=== PATIENT | female | born 1995 | race Caucasian/White ===

== ENCOUNTER 2024-09-17 13:06 | Emergency (ER) | payer OTHER, SELFPAY ==
--- NOTE | 2024-09-17 13:08 | ED.EAR ---
HPI - Ear Problem General Chief complaint: Ear Stated complaint: Bilateral Ear Pain Time Seen by Provider: 09/17/24 13:08 Source: patient Mode of arrival: ambulatory Limitations: no limitations History of Present Illness HPI Narrative: Patient is a 28-year-old female presents with bilateral ear pain, pressure and popping for a month. Reports left feels more plugged on the right. Denies any congestion, cough, sore throat, fever, chills some nausea, vomiting, diarrhea. MD Complaint: ear pain Related Data Home Medications ?Medication ?Instructions ?Recorded ?Confirmed ?Last Taken ?Type methylphenidate HCl 20 mg mg PO 09/17/24 Unknown History tablet,extended release Allergies Allergy/AdvReac Type Severity Reaction Status Date / Time No Known Allergies Allergy Verified 09/17/24 13:13 Review of Systems Review of Systems: All systems reviewed & are unremarkable except as noted in HPI and below Constitutional: Constitutional: Denies body ache(s), Denies chills, Denies fever(s), Denies headache(s) and Denies malaise Eyes: Eyes: Denies blurry vision, Denies eye discharge and Denies irritation ENT: Reports otalgia, Denies headache(s), Denies nasal congestion, Denies nasal discharge and Denies sore throat Cardiovascular: Cardiovascular: Denies chest pain, Denies edema, Denies palpitations and Denies dyspnea on exertion Respiratory: Respiratory: Denies cough and Denies dyspnea on exertion Gastrointestinal: Gastrointestinal: Denies abdominal pain, Denies diarrhea, Denies nausea and Denies vomiting Musculoskeletal: Musculoskeletal: Denies back pain, Denies arthralgias and Denies muscle weakness Integumentary/Breasts: Skin/Breast: Denies pruritus and Denies rash Neurologic: Denies headache(s) Psychiatric: Psychiatric: Reports no additional psychiatric complaints Endocrine: Endocrine: Denies palpitations PMFSH Comments At time of signature, agree with nursing past medical, surgical, social and family history. There is no relevant family history pertinent to the presenting complaint? Exam Const: General: cooperative, healthy appearing, no acute distress and well nourished Nutritional Appearance: well nourished Orientation/consciousness: patient oriented x3 Limitations: no limitations HENMT: Head: normal to inspection, normocephalic and atraumatic Ears: hearing grossly normal bilaterally, EAC's normal, no periauricular adenopathy and TM abnormal wth effusion serous bilateral Face/Nose/Sinus: Normal external nose present, Normal nares present, Normal nasal mucous membranes and turbinates present, No nasal discharge present, normal facial exam and sinuses nontender Face and sinus: normal facial exam and sinuses nontender Mouth: Yes Normal oral and palatal mucosa present, Yes lip normal, Yes tongue normal and Yes moist mucous membranes Throat: posterior oropharynx normal, tonsils normal and uvula midline Eyes: General: appearance normal, both eyes and all related structures Alignment and Position: alignment normal and position normal Eyelids: eyelids normal Pupils: Equal, round and reactive pupils present EOM: EOMs intact bilaterally Neck: Neck: normal visual inspection, full ROM, no lymphadenopathy and supple Chest: Chest palpation & inspection: normal inspection of the chest Resp: Effort & Inspection: normal respiratory effort and able to speak in complete sentences Auscultation: clear to auscultation bilaterally, no crackles, no rales, no rhonchi and no wheezes Cardio: Rate: regular rate Rhythm: regular rhythm Heart sounds: S1 normal heart sound present and S2 normal heart sound present Skin: General skin exam: normal color and no rashes or lesions noted Neuro: General: patient oriented x3 and moves all extremities Cranial nerves: Yes Equal, round and reactive pupils present Cognition (Neuro): normal cognition Speech: normal speech Gait exam (Neuro): Normal gait present Extrem: General: normal to inspection and full ROM Psych: Appearance: grossly normal and well kempt Mental Status: mental status grossly normal Speech and movement: Normal speech and movement present Course Course Emergency Course: Patient is aware of diagnosis, understands and agrees to treatment plan.? Anticipatory guidance given.? Patient agrees to follow-up as directed and is aware of reasons to seek care at the emergency department.? Portions of this record may have been created with voice recognition software? Level of Care: Express Care Visit Vital Signs Vital signs: Reviewed Medical Decision Making MDM Narrative Medical decision making narrative: Pt well hydrated appearing, in no respiratory distress, hemodynamically stable. Recommend supportive care. The patient is stable at time of discharge the clinical impression was discussed and the patient was given the opportunity to ask questions, which were addressed as completely as possible given the information available at present. Anticipatory guidance and return to care precautions were discussed and the importance of primary care follow-up was stressed and encouraged. The patient voiced understanding of the plan, indications to return, and the need for follow-up. Exam findings show no acute concerns or changes Patient is appropriate for outpatient treatment and follow-up. Differential diagnosis considered: Montoya virus, strep pharyngitis, allergic rhinitis, upper respiratory tract infection, sinusitis, rhinosinusitis, nasopharyngitis. viral pharyngitis, otitis media, otitis externa, otitis effusion, foreign body, cerumen impaction, viral syndrome, and influenza.? Discharge Plan Discharge Clinical Impression: Acute effusion of both middle ears Patient Disposition: Home, Self-Care Condition: Stable Instructions: Fluid In The Ear (Serous Otitis Media) (ED) Additional Instructions: Recommend antihistamine such as Benadryl at night time and Zyrtec or Verónica during the day until symptoms improve Flonase nasal spray, 1 spray in each nostril once daily until symptoms improve Also, recommend symptomatic treatment includes: rest, fluids, and increase humidity of the air at home. Recommend Acetaminophen as directed on the bottle to reduce fever, pain Please schedule a follow-up visit with your personal physician for further evaluation and treatment within 3-5days. If your symptoms persist, change or worsen significantly before you can contact your personal physician then please, without delay, go to the emergency department for further evaluation. Patient Language: Ukrainian Prescriptions: New methylprednisolone [Medrol (Teodoro)] 4 mg tablets,dose pack See Rx Instructions .ROUTE .COMPLEX Qty: 21 0RF Rx Instructions: orally per package directions fluticasone propionate [Flonase Allergy Relief] 50 mcg/actuation spray,suspension 1 spray intranasal DAILY Qty: 16 0RF Rx Instructions: administer into each nostril No Action methylphenidate HCl 20 mg tablet extended release PO Follow-up/Referrals: [place], [Primary Care Provider] - 3 Days Time of Disposition: 13:35
[2024-09-17 13:15] VITALS: BP 125/73; PULSE 85; RESP 18; TEMP 36.8; O2SAT 100
--- OUTSIDE RECORDS SUMMARY | 2024-09-17 14:28 | XMS_ITS | Referral Summary ---
Author Organization [facility] Address [address] [place] [address] Care Team Providers Care Processing Rep Name Role Phone [facility] Primary Care Provider [phone] Allergies No known active allergies Medications Tirosint 100 mcg capsule 2 Active phentermine 15 mg capsule daily Active ibuprofen (ADVIL,MOTRIN) 800 mg tabletIndications:A nti-inflammatory,Fe denis,Pain Take 1 tablet (800 mg total) by mouth every 8 (eight) hours as needed for pain 21 tablet 2 Active ondansetron ODT (ZOFRAN-ODT) 4 mg disintegrating tablet Take 1 tablet (4 mg total) by mouth every 8 (eight) hours as needed for nausea or vomiting 20 tablet 2 Active acetaminophen (TYLENOL) 325 mg tablet Take 1 tablet (325 mg total) by mouth 4 Active multivit with min-folic acid 0.4 mg tablet Take by mouth 4 Active Active Problems Problem Noted Date Diagnosed Date Pyelonephritis 04/17/2022 Social History Tobacco Use Types Packs/Day Years Used Date Smoking Tobacco: Unknown Tobacco Cessation:Counseling Given: Not Answered Personal Safety Answer Date Recorded Getting School Help Needed Not on file 11/23 Comments No Sex and Gender Information Value Date Recorded Sex Assigned at Not on file 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 Gender Identity Not on file Sexual Orientation Not on file Last Filed Vital Signs Vital Sign Reading Time Taken Comments Blood Pressure 92/58 11/07/2022 5:35 PM CDT Pulse 68 11/07/2022 5:35 PM CDT Temperature 37.1 C (98.8 F) 11/07/2022 3:50 PM CDT Respiratory Rate 14 11/07/2022 5:35 PM CDT Oxygen Saturation 99% 11/07/2022 5:35 PM CDT Inhaled Oxygen Concentration - - Weight 60.5 kg (133 lb 6.1 oz) 11/07/2022 3:50 P M CDT Height 152.4 cm (5') 11/07/2022 3:50 PM CDT Body Mass Index 26.05 11/07/2022 3:50 PM CDT Plan of Treatment Not on file Insurance [facility] CLAIMS [facility] Care Teams Processing Rep Relationship Specialty Start Date End Date [facility] [address] [place] [address] PCP - General 04/17/22
--- OUTSIDE RECORDS SUMMARY | 2024-09-17 14:28 | XMS_ITS | Clinical Summary ---
Author Organization [facility] Address [facility] [place] [address] Care Team Providers Care Insurance Billing Specialist Name Role Phone None, Provider MD Primary Care Provider Unavaila ble Allergies No known active allergies Medications TIROSINT 88 MCG Cap 06/22/2023 Active buPROPion SR (WELLBUTRIN SR) 100 MG 12 hr tablet Take 1 tablet (100 mg total) by mouth 2 (two) times daily. 04/04/2024 Active dextromethorpha n-guaiFENesin ER (MUCINEX DM) 30-600 MG TABLET SR 12 HR 12 hr tablet Take 1 tablet by mouth every 12 (twelve) hours as needed. 28 tablet 04/10/2024 Active methylPREDNISol one, AVI, (MEDROL DOSEPAK) 4 MG tablet Take 1 tablet (4 mg total) by mouth daily. 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 Gender Identity Not on file Sexual Orientation Not on file Last Filed Vital Signs Vital Sign Reading Time Taken Comments Blood Pressure 122/76 04/25/2024 9:30 PM CDT Pulse 76 04/25/2024 8:12 PM CDT Temperature 36.9 C (98.5 F) 04/25/2024 6:03 PM CDT Respiratory Rate 16 04/25/2024 8:12 PM CDT Oxygen Saturation 100% 04/25/2024 9:30 PM CDT Inhaled Oxygen Concentration - - Weight 58.1 kg (128 lb) 04/25/2024 6:03 PM CDT Height 152.4 cm (5') 04/25/2024 6:03 PM CDT Body Mass Index 25 04/25/2024 6:03 PM CDT Plan of Treatment Health Maintenance Due Date Last Done Comments Cervical Cancer Screening Pa p Smear (Age 21 to 29) Every 3 Years 1994 Cervical Cancer Screening 1994 Annual Physical 1997 Hepatitis C 2012 DTaP, Tdap and Td Vaccines ( 1 - Tdap) 2013 Hepatitis B Vaccines (1 of 3 - 19+ 3-dose series) 2013 COVID-19 Vaccine (2 - 2023-2 5 season) 2024 12/06/2020 Influenza Adult (#1) 2024 06/14/2020 HPV Vaccines Aged Out No longer eligi ble based on patient's age to complete this topic Meningococcal B Vaccine Aged Out No l onger eligible based on patient's age to complete this topic Meningococcal Vaccine Aged Out No rena bertha eligible based on patient's age to complete this topic Pneumococcal Vaccine: Pediat rics (0 to 5 Years) and At-Risk Patients (6 to 64 Years) Aged Out No longer eligi ble based on patient's age to complete this topic RSV Immunizations Under 20 Months Aged Out No longer eligible based on patient's age to complete this topic Insurance Care Teams Insurance Billing Specialist Relationship Specialty Start Date End Date None, Provider, PCP - General UNKNOWN PHYSICIAN SPECIALTY 06/14/23
--- OUTSIDE RECORDS SUMMARY | 2024-09-17 14:28 | XMS_ITS | Clinical Summary ---
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 Gender Identity Not on file Sexual Orientation Not on file Obstetrics History Last Filed Vital Signs Vital Sign Reading [...] 11/07/2022 3:50 PM CDT Plan of Treatment Health Maintenance Due Date Last Done Comments Cervical Cancer Screening 1994 Depression Screening 1994 Hepatitis C Screening 1994 Varicella Vaccines (1 of 2 - 13+ 2-dose series) 11/29/2007 Regular Well Visit/Exam 18-64 2012 Covid-19 Vaccine (2 - 2023-2 5 season) 2024 12/06/2020 Influenza Vaccine (#1) 2024 0, 05/25/2016 DTaP/Tdap/Td Vaccine (2 - Td or Tdap) 01/18/2026 01/19/2016 Hepatitis B Screening Completed 01/27/2016 HPV Vaccines Aged Out No longer eligi ble based on patient's age to complete this topic Pneumococcal vaccine <65 Aged Out No longer eligible based on patient's age to complete this topic Insurance [facility] CLAIMS [facility] Care Teams Restaurant Maintenance Technician Relationship Specialty Start Date End Date [facility] [address] [place] [address] PCP - General 04/17/22
--- OUTSIDE RECORDS SUMMARY | 2024-09-17 14:35 | XMS_ITS | Continuity of Care Document ---
Author Name [facility] Organization [facility] Care Team Providers Care Data Warehouse Consultant Name Role Phone [facility] Unavailable Unavailable Problems Combined list of problems from Department of Defense and Veterans Affairs facilities. It does not include entries that were removed or entered in error. Problem Status Onset Date Problem Type Date of Resolution Comments Source Hypothyroidism Active 03/08/2022 Condition 0055 [facility] Encounter for other contraceptive management Active Condition [facility] Hashimotos disease Active Condition 005 5[facility] Medications Combined list of outpatient medications from Department of Defense and Veterans Affairs facilities.Medications provided include 1) outpatient medications from the last 15 months, and 2) patient-reported medications. Medication Details Route Status Patient Instructions Prescription Expires Prescription Number Last Dispense Date Ordering Provider Order Date Order Qty Source acetaminoph en 325 mg oral tablet 1 tab(s), Oral, every 4 hr, PRN pain or fever, # 100 tab(s), 0 total refill(s ), Maintena donnye Oral (given by mouth) Ordered 2023 100.0 0055C-[address] [place] [address] AMOXICILLIN (AMOXICILLI N), 875MG, TABLET, ORAL, [facility], 100 ea. BOTTLE Active [id number] 2023 20 Pharmac y Data Transac tion Service Facilit y cholecalcif jose angel 1250 mcg (50,000 intl units) oral capsule 1 cap(s), Oral, every week, # 12 cap(s), 0 total refill(s ), Maintena nce, Pharmacy : [facility] Oral (given by mouth) Ordered 2023 12.0 0055C-[address] [place] [address] FLUARIX QUAD [id number] (influenza virus vaccine quadrival 9850-1264(6 mos and up)/PF), 60MCG/.5ML, FLUARIX QUAD 1 (influen za virus vaccine quadriva l 2019- 1(6 mos and up)/PF), 60MCG/.5 ML, Start Date: 06/22/20 Stop Date: 08/01/23 Status: Ros guardado Repeat number: 1 Discont inued 08/01/20232023 No Facilit y Access ibuprofen 200 mg oral tablet 1 tab(s), Oral, every 6 hr, 0 total refill(s ), Maintena nce Oral (given by mouth) Ordered 2023 0055C-3 [facility] Enrrique levothyroxi ne 88 mcg oral capsule 1 cap(s), Oral, Daily, TAKE ONE TABLET BY MOUTH EVERY DAY, # 30 cap(s), 0 total refill(s ), Maintena nce, [place] prescrip tion until patient gets [facility] refill, Pharmacy : [facility] Oral (given by mouth) Discont inued 08/01/20232023 30.0 0055C-3 [facility] Enrrique levothyroxi ne [Tirosint] 88 mcg capsule See dose instruct ions in comments , # 90 EA, 1 total refill(s ), Acute Complet ed 06/29/2023 3 2022 90.0 Ambulat ory Pharmac y multivitami n adult, oral tablet Oral, Daily, 0 total refill(s ), Maintena nce Oral (given by mouth) Ordered 2023 0055C-3 [facility] Enrrique norethindro ne 0.35 mg oral tablet norethin drone 0.35 mg oral tablet Start Date: 10/15/19 Stop Date: 08/01/23 Status: Ros guardado Repeat number: 1 Discont inued 08/01/20232023 No Facilit y Access TIROSINT (levothyrox ine sodium), 88 MCG, CAPSULE, ORAL, [employer], 30 ea. BLIST PACK Active [id number] 2023 90 Pharmac y Data Transac tion Service Facilit y Tirosint 88 mcg oral capsule 1 cap(s), Oral, Daily, TAKE ONE CAPSULE DAILY, # 90 cap(s), 2 total refill(s ), Maintena nce, Pharmacy : [facility] Oral (given by mouth) Ordered 2023 90.0 0055C-3 [facility] Enrrique Tirosint 88 mcg oral capsule 1 cap(s), Oral, Daily, TAKE ONE CAPSULE DAILY, # 90 cap(s), 1 total refill(s ), [facility], Pharmacy : [facility] Oral (given by mouth) Discont inued 12/22/20232023 90.0 0055C-3 [facility] Enrrique Tirosint 88 mcg oral capsule 1 cap(s), Oral, Daily, TAKE ONE CAPSULE DAILY, # 90 cap(s), 1 total refill(s ), [facility], Pharmacy : [facility] Oral (given by mouth) Discont inued 06/22/20232022 90.0 0055C-3 [facility] Enrrique triamcinolo ne 0.025% topical cream triamcin olone 0.025% topical cream Start Date: 08/08/19 Stop Date: 08/01/23 Status: Disconti nuemani Repeat number: 1 Discont inued 08/01/20232023 No Facilit y Access Allergies, Adverse Reactions, Alerts Combined list of allergies from Department of Defense and Veterans Affairs facilities. It does not include entries that were removed or entered in error. Substance Category Reaction Severity Reaction type Status Date Reported Comments Source No Known Allergies Drug allergy (disorder) active 06/29/2016 [facility] Immunizations Combined list of available immunizations from the Department of Defense and Veterans Affairs facilities. Immunization Series Date Given Administered By Site Reaction Lot Number CVX Code Drug Arcgis Developer Status Comments Source tuberculin skin test; purified protein derivative solution, intradermal 1 2020 Unknown, Provider [id number] Sanofi Pasteur (PMC) complet ed tuberculi n skin test; purified protein derivativ e solution, intraderm al DoD COVID-19 vaccine, vector-nr, rS-Ad26, PF, 0.5 mL 2020 ALUL, () Not Given COVID-19 vaccine, vector-nr , rS-Ad26, PF, 0.5 mL [facility] influenza, injectable, quadrivalent- pf 2019 150 GlaxoSmithKli ne complet ed influenza , injectabl e, quadrival ent-pf 06/14/20 Given Ambulat ory Pharmac y influenza, injectable, quadrivalent, preservative free 2019 ALUL, () Not Given influenza , injectabl e, quadrival ent, preservat eleuterio free DoD tuberculin purified protein derivative 2017 zzLef t Arm [id number] sanofi pasteur complet ed Patient Tolerance : Negative Ambulat ory Pharmac y tuberculin skin test; purified protein derivative solution, intradermal 1 2017 Unknown, Provider [id number] Sanofi Pasteur (PMC) complet ed tuberculi n skin test; purified protein derivativ e solution, intraderm al DoD influenza, seasonal, injectable-pf 2015 zzLef t Arm [id number] Seqirus complet ed influenza , seasonal, injectabl e-pf 05/25/16 Given Ambulat ory Pharmac y Influenza, seasonal, injectable, preservative free 1 2015 Unknown, Provider [id number] Seqirus (SEQ) complet ed Influenza , seasonal, injectabl e, preservat eleuterio free DoD hepatitis B adult vaccine 2015 zzRenny Arm [id number] GlaxoSmithKli ne complet ed hepatitis B adult vaccine 01/27/16 Given Ambulat ory Pharmac y measles/mumps /rubella virus vaccine 2015 zzLef t Arm [id number] Merck & Company Inc complet ed measles/m umps/rube lla virus vaccine 01/27/16 Given Ambulat ory Pharmac y measles, mumps and rubella virus vaccine 1 2015 Unknown, Provider [id number] Merck (MSD) complet ed measles, mumps and rubella virus vaccine DoD hepatitis B vaccine, adult dosage 1 2015 Unknown, Provider [id number] [facility] hepatitis B vaccine, adult dosage DoD tetanus, diphtheria, acellular pertu is 2015 zzRenny ht Arm [id number] 115 GlaxoSmithKli ne complet ed tetanus, diphtheri a, acellular pertussis 01/19/16 Given Ambulat ory Pharmac y tuberculin purified protein derivative 2015 zzLef t Arm [id number] sanofi pasteur complet ed Patient Tolerance : Negative Ambulat ory Pharmac y hepatitis A adult vaccine 2015 zzLef t Arm [id number] GlaxoSmithKli ne complet ed hepatitis A adult vaccine 01/19/16 Given Ambulat ory Pharmac y hepatitis A vaccine, adult dosage 2015 Unknown, Provider [id number] [facility] ([facility]) complet ed hepatitis A vaccine, adult dosage DoD tuberculin skin test; purified protein derivative solution, intradermal 2015 Unknown, Provider [id number] 96 Sanofi Pasteur (PMC) complet ed tuberculi n skin test; purified protein derivativ e solution, intraderm al DoD tetanus toxoid, reduced diphtheria toxoid, and acellular pertu is vaccine, adsorbed 1 2015 Unknown, Provider [id number] [facility] ([facility]) complet ed tetanus toxoid, reduced diphtheri a toxoid, and acellular pertussis vaccine, adsorbed DoD poliovirus vaccine, live, oral 1999 TRANSCR IBED 02 complet ed polioviru s vaccine, live, oral 11/04/99 Given Ambulat ory Pharmac y trivalent poliovirus vaccine, live, oral 1999 Unknown, Provider 02 Transcribed (TRS) complet ed trivalent polioviru s vaccine, live, oral DoD poliovirus vaccine, live, oral 1995 TRANSCR IBED 02 complet ed polioviru s vaccine, live, oral 07/18/95 Given Ambulat ory Pharmac y trivalent poliovirus vaccine, live, oral 1 1995 Unknown, Provider 02 Transcribed (TRS) complet ed trivalent polioviru s vaccine, live, oral DoD poliovirus vaccine, live, oral 1994 TRANSCR IBED 02 complet ed polioviru s vaccine, live, oral 04/03/95 Given Ambulat ory Pharmac y trivalent poliovirus vaccine, live, oral 1 1994 Unknown, Provider 02 Transcribed (TRS) complet ed trivalent polioviru s vaccine, live, oral DoD poliovirus vaccine, live, oral 1994 TRANSCR IBED 02 complet ed polioviru s vaccine, live, oral 01/31/95 Given Ambulat ory Pharmac y trivalent poliovirus vaccine, live, oral 1994 Unknown, Provider 02 Transcribed (TRS) complet ed trivalent polioviru s vaccine, live, oral DoD Results Combined list of recent chemistry, hematology and other laboratory results from Department of Defense and Veterans Affairs, ranging from 15 months to all on record, depending upon the facility. Order Name Results Value Reference Range Date Interpretation Specimen Comments Source Chemistry TSH 1.280 mIU/L 0.270 - 4.200 10/03 N Interpretive Data: Recommend: TPO/Thyroper oxidase Antibody when TSH result is > 4.2 uIU/mL 5600A-U [facility] Chemistry T3 Total 0.88 ng/mL 0.80 - 2.00 10/03 N Interpretive Data: METHODOLOGY: Testing performed by electrochemi luminescent immunoassay (ECLIA). [facility] Chemistry Sodium 141 mmol/L 136 - 145 10/03 N 0055A-[address] [place] [address] Chemistry Protein Total 7.5 g/dL 6.4 - 8.3 10/03 N 0055A-[address] [place] [address] Chemistry Potassium Lvl 3.9 mmol/L 3.5 - 5.1 10/03 N 0055A-[address] [place] [address] Chemistry AGAP 9.00 0.00 - 15.00 10/03 N 0055A-[address] [place] [address] Chemistry Albumin 4.60 g/dL 3.50 - 5.20 10/03 N 0055A-[address] [place] [address] Chemistry ALT 10 U/L 5 - 55 10/03 N 0055A-[address] [place] [address] Chemistry AST 13 U/L 5 - 34 10/03 N 0055A-[address] [place] [address] Chemistry Alk Phos 48 U/L 40 - 150 10/03 N 0055A-[address] [place] [address] Chemistry Calcium 10.0 mg/dL 8.4 - 10.2 10/03 N 0055A-[address] [place] [address] Chemistry Creatinine Level 0.80 mg/dL 0.57 - 1.11 10/03 N 0055A-[address] [place] [address] Chemistry Glucose Lvl 89 mg/dL 74 - 99 10/03 N 0055A-[address] [place] [address] Chemistry Chloride 108 mmol/L 98 - 107 10/03 H 0055A-[address] [place] [address]- Enrrique Chemistry CO2 24 mmol/L 22 - 29 10/03 N [facility] Chemistry Bilirubin Total 0.8 mg/dL 0.2 - 1.2 10/03 N - [facility] Chemistry BUN/Creat Ratio 24 mg/dL 12 - 20 10/03 H - [facility] Chemistry BUN 19 mg/dL 7 - 20 10/03 N - [facility] Chemistry eGFR CKD EPI 103 mL/min /1.73_ m2 10/03 Interpretive Data: Estimated Glomerular Filtration Rate (eGFR) calculated using the 2020 Chronic Kidney Disease-Epid emiology (CKD-EPI) Collaboratio n creatinine equation; units of measure are mL/min/1.73 m2. Results are only valid for adults (>=18 years) whose serum creatinine is in steady state. eGFR calculations are not valid for patients with acute kidney injury and for patients on dialysis. Creatinine-b ased estimates of kidney function may also be inaccurate in patients with reduced creatinine generation due to decreased muscle mass (e.g., malnutrition , severe hypoalbumine anita, sarcopenia, chronic neuromuscula r disease, amputations, severe heart failure or liver disease) and in patients with increased creatinine generation due to increased muscle mass (e.g., muscle builders, anabolic steroids) or increased dietary intake. CKD is diagnosed based on abnormalitie s of kidney structure or function, present for >3 months, with implications for health and disease. CKD is classified and staged based on cause, eGFR and albuminuria (quantified as urine albumin to creatinine ratio). An eGFR >60 mL/min/1.73 m2 in the absence of increased urine albumin excretion or structural abnormalitie s does not CKD. eGFR provides only an estimate of measured GFR within +/- 30% for most patients. As mentioned, nutritional status and muscle mass, among many factors, may lead to inaccuracy in the estimate. Consider ordering the creatinine-c ystatin C panel if better accuracy is needed for clinical decision-william ing. eGFR (mL/min/1.73 m2) CKD stage Interpretati on Normal 60-89 Mild decrease 45-59 Mild to moderate decrease 30-44 Moderate to severe decrease 15-29 Severe decrease <15 Kidney failure - 75[facility] Chemistry Vitamin D 25 OH 13.3 ng/mL 30.0 - 100.0 10/03 L Interpretive Data: Classificati on of Vitamin D Status: Deficient: <20 ng/mL Insufficient : 20-29 ng/mL Sufficient: 30-100 ng/mL Possible Toxicity: >100 ng/mL This assay is for the quantitative determinatio n of total 25 (OH) vitamin D. It is intended as an aid in the determinatio n of vitamin D sufficiency. Results should always be interpreted in conjunction with the patient's medical history, clinical presentation , and other findings. Testing performed by Electrochemi luminescence . 5600A-U [facility] Chemistry T4 Free Direct.LC 1.40 ng/dL 10/03 Result Comment: Performed At: [address] [id number] Oneil Robbins PhD Ph:[phone] [address] [place] [address] Chemistry Hemoglobin A1c 5.0 % 4.0 - 5.6 10/03 N Interpretive Data: Normal: 4.0 - 5.6% Increased Risk: 5.7 - 6.4% Diabetic Range: 6.5% For patients without diabetes, the normal range for the hemoglobin A1c test is between 4% and 5.6%. Hemoglobin A1c levels between 5.7% and 6.4% indicate increased risk of diabetes, and levels of 6.5% or higher indicate diabetes. Because studies have repeatedly shown that pmm-vz-bjrkl ol diabetes results in complication s from the disease, the goal for people with diabetes is a hemoglobin A1c less than 7%. The higher the hemoglobin A1c, the higher the risks of developing complication s related to diabetes. If confirmation is needed, consider recalling the patient and ordering Hemoglobin Electrophore sis. -[address] [place] [address] Chemistry eAvg Glucose 97 mg/dL 10/03 0055A-[address] [place] [address] Hematology MCV 87 fL 80 - 97 10/03 N 5A-[address] [place] [address] Hematology MPV 8.8 fL 7.4 - 10.4 10/03 N 5A-[address] [place] [address] Hematology RBC 4.6 x10^6/ mcL 3.6 - 5.0106 10/03 N -[address] [place] [address] Hematology Platelets 237.0 x10^3/ mcL 150.0 - 450.0103 10/[address] [place] [address] Hematology RDW 12.2 % 11.0 - 14.9 10/[address] [place] [address] WBC 4.6 x10^3/ mcL 4.0 - 11.0103 10/[address] [place] [address] Differentia l? Auto ( 10:09 AM) 10/[address] [place] [address] Hemoglobin 13.7 g/dL 11.0 - 15.0 10/[address] [place] [address] Hematocrit 40 % 34 - 46 10/[address] [place] [address] MCHC 34.2 g/dL 33.0 - 36.5 10/[address] [place] [address] MCH 30 pg 28 - 33 10/[address] [place] [address] Basophil % Auto 0.2 % 0.0 - 2.5 10/[address] [place] [address] Eos Absolute 0.1 x10^3/ mcL 0.0 - 0.7103 10/[address] [place] [address] Eosinophil % Auto 2 % 0 - 5 10/[address] [place] [address] Lymphocyte % Auto 36.3 % 20.0 - 40.0 10/[address] [place] [address] Lymph Absolute 1.7 x10^3/ mcL 1.2 - 4.0103 10/[address] [place] [address] Wilbarger Absolute 0.2 x10^3/ mcL 0.2 - 0.8103 10/[address] [place] [address] Monocyte % Auto 5 % 1 - 12 10/[address] [place] [address] Neutro Absolute 2.6 x10^3/ mcL 2.0 - 7.0103 10/[address] [place] [address] Neutrophil % Auto 56.8 % 46.0 - 77.0 10/[address] [place] [address] Hematology Baso Absolute 0.0 x10^3/ mcL 0.0 - 0.1103 10/[address] [place] [address] Chemistry eAvg Glucose 103 mg/dL 04/[address] [place] [address] Chemistry Hemoglobin A1c 5.2 % 4.0 - 5.6 04/21 N Interpretive Data: Normal: 4.0 - 5.6% Increased Risk: 5.7 - 6.4% Diabetic Range: 6.5% For patients without diabetes, the normal range for the hemoglobin A1c test is between 4% and 5.6%. Hemoglobin A1c levels between 5.7% and 6.4% indicate increased risk of diabetes, and levels of 6.5% or higher indicate diabetes. Because studies have repeatedly shown that cly-ip-hrgql ol diabetes results in complication s from the disease, the goal for people with diabetes is a hemoglobin A1c less than 7%. The higher the hemoglobin A1c, the higher the risks of developing complication s related to diabetes. If confirmation is needed, consider recalling the patient and ordering Hemoglobin Electrophore sis. [address] [place] [address] Chemistry Cholesterol Total 145 mg/dL 04/21 N Interpretive Data: According to the [employer]: AGES 0-19: Desirable: < 170 mg/dL Borderline High: 170-199 mg/dL High Blood Cholesterol: >/= 200 mg/dL ADULTS: Desirable < 200 mg/dL Borderline High: 200-239 mg/dL High Blood Cholesterol: >/= 240 mg/dL [address] [place] [address] Chemistry LDL/HDL 2 04/[address] [place] [address] Chemistry Triglycerid es 32 mg/dL 7 - 149 04/21 N Interpretive Data: AGES 0-9: Desirable: < 75 mg/dL Borderline High: 75-99 mg/dL High: >/= 100 mg/dL AGES 10-19: Desirable: < 90 mg/dL Borderline High: 90-129 mg/dL High: >/= 130 mg/dL ADULTS: Desirable: < 150 mg/dL Borderline High: 150-199 mg/dL High: >/= 240 mg/dL Very High: >/= 500 mg/dL [address] [place] [address] Chemistry HDL Cholesterol 56 mg/dL 40 - 59 04/21 N Interpretive Data: HDL (HIGH DENSITY LIPOPROTEIN) : ADULTS: Low: < 40 mg/dL High: >/= 60 mg/dL AGES 0 -19: Low: < 40 mg/dL Borderline Low: 40 - 45 mg/dL Acceptable: > 45 mg/dL [address] [place] [address] Chemistry LDL 85 mg/dL 100 - 130 04/21 L Interpretive Data: AGES 0-19: Desirable: < 110 mg/dL Borderline High: 110-129 mg/dL High: >/= 130 mg/dL ADULTS: Desirable: <100 mg/dL Near/above optimal: 100-130 mg/dL Borderline High: 131-159 mg/dL High: 160-189 mg/dL Very High: 190 mg/dL [address] [place] [address] Chemistry Chol/HDL 3 mg/dL 04/21-[address] [place] [address] Chemistry AST 16 U/L 5 - 34 04/21 N -[address] [place] [address] Chemistry Bilirubin Total 0.6 mg/dL 0.2 - 1.2 04/21 N -[address] [place] [address] Chemistry ALT 13 U/L 5 - 55 04/21 N -[address] [place] [address] Chemistry BUN 16 mg/dL 7 - 20 04/21 N -[address] [place] [address] Chemistry BUN/Creat Ratio 20 mg/dL 12 - 20 04/21 N -[address] [place] [address] Chemistry Calcium 9.1 mg/dL 8.4 - 10.2 04/21 N -[address] [place] [address] Chemistry Creatinine Level 0.80 mg/dL 0.57 - 1.11 04/21 N -[address] [place] [address] Chemistry Chloride 108 mmol/L 98 - 107 04/21 H -[address] [place] [address] Chemistry CO2 24 mmol/L 22 - 29 04/21 N 5A-[address] [place] [address] Chemistry Glucose Lvl 95 mg/dL 74 - 99 04/21 N - [address] [place] [address] Chemistry AGAP 8.00 0.00 - 15.00 04/21 N 0055A-[address] [place] [address] Chemistry Protein Total 7.0 g/dL 6.4 - 8.3 04/21 N 0055A-[address] [place] [address] Chemistry Potassium Lvl 3.9 mmol/L 3.5 - 5.1 04/21 N 0055A-[address] [place] [address] Chemistry Sodium 140 mmol/L 136 - 145 04/21 N 0055A-[address] [place] [address] Chemistry Albumin 4.30 g/dL 3.50 - 5.20 04/21 N 0055A-[address] [place] [address] Chemistry Alk Phos 46 U/L 40 - 150 04/21 N - [address] [place] [address] Chemistry TSH 0.335 mIU/L 0.270 - 4.200 04/21 N Interpretive Data: Recommend: TPO/Thyroper oxidase Antibody when TSH result is > 4.2 uIU/mL [facility] Chemistry eGFR CKD EPI 103 mL/min /1.73_ m2 04/21 Interpretive Data: Estimated Glomerular Filtration Rate (eGFR) calculated using the 2020 Chronic Kidney Disease-Epid emiology (CKD-EPI) Collaboratio n creatinine equation; units of measure are mL/min/1.73 m2. Results are only valid for adults (>=18 years) whose serum creatinine is in steady state. eGFR calculations are not valid for patients with acute kidney injury and for patients on dialysis. Creatinine-b ased estimates of kidney function may also be inaccurate in patients with reduced creatinine generation due to decreased muscle mass (e.g., malnutrition , severe hypoalbumine anita, sarcopenia, chronic neuromuscula r disease, amputations, severe heart failure or liver disease) and in patients with increased creatinine generation due to increased muscle mass (e.g., muscle builders, anabolic steroids) or increased dietary intake. CKD is diagnosed based on abnormalitie s of kidney structure or function, present for >3 months, with implications for health and disease. CKD is classified and staged based on cause, eGFR and albuminuria (quantified as urine albumin to creatinine ratio). An eGFR >60 mL/min/1.73 m2 in the absence of increased urine albumin excretion or structural abnormalitie s does not CKD. eGFR provides only an estimate of measured GFR within +/- 30% for most patients. As mentioned, nutritional status and muscle mass, among many factors, may lead to inaccuracy in the estimate. Consider ordering the creatinine-c ystatin C panel if better accuracy is needed for clinical decision-william ing. eGFR (mL/min/1.73 m2) CKD stage Interpretati on Normal 60-89 Mild decrease 45-59 Mild to moderate decrease 30-44 Moderate to severe decrease 15-29 Severe decrease <15 Kidney failure -[address] [place] [address] Hemoglobin 12.9 g/dL 11.0 - 15.0 04/21 N 0055A-[address] [place] [address] MCV 86 fL 80 - 97 04/21 N 005- [address] [place] [address] MCH 30 pg 28 - 33 04/21 N 0055A- [address] [place] [address] MCHC 34.8 g/dL 33.0 - 36.5 04/21 N 005- [address] [place] [address] Hematocrit 37 % 34 - 46 04/21 N 0055A-[address] [place] [address] WBC 4.7 x10^3/ mcL 4.0 - 11.0103 04/21 N 005-[address] [place] [address] MPV 8.5 fL 7.4 - 10.4 04/21 N 0055A-[address] [place] [address] Platelets 253.0 x10^3/ mcL 150.0 - 450.0103 04/21 N 0055A-[address] [place] [address] RDW 12.1 % 11.0 - 14.9 04/21 N 0055A-[address] [place] [address] RBC 4.3 x10^6/ mcL 3.6 - 5.0106 04/21 N 0055A-[address] [place] [address] Basophil % Auto 0.2 % 0.0 - 2.5 04/21 N 0055A-[address] [place] [address] Baso Absolute 0.0 x10^3/ mcL 0.0 - 0.1103 04/21 N 0055A- [address] [place] [address] [place] Absolute 0.2 x10^3/ mcL 0.2 - 0.8103 04/21 N - [address] [place] [address] Hematology Eos Absolute 0.0 x10^3/ mcL 0.0 - 0.7103 04/21 N - [address] [place] [address] Hematology Eosinophil % Auto 1 % 0 - 5 04/[address] [place] [address] Hematology Lymphocyte % Auto 36.2 % 20.0 - 40.0 04/21 N - [address] [place] [address] Hematology Lymph Absolute 1.7 x10^3/ mcL 1.2 - 4.0103 04/21 N - [address] [place] [address] Hematology Monocyte % Auto 5 % 1 - 12 04/[address] [place] [address] Hematology Neutro Absolute 2.7 x10^3/ mcL 2.0 - 7.0103 04/[address] [place] [address] Hematology Neutrophil % Auto 57.0 % 46.0 - 77.0 04/[address] [place] [address] Vital Signs Combined list of inpatient and outpatient Vital Signs from Department of Defense and Veterans Affairs, ranging from 12 months to all on record, depending upon the facility. Vital Sign Value Date Comments Source Temperature Oral 37.1 Marquita 10/04/2023 14:24:00 [facility] Systolic Blood Pressure 116 mm[Hg] 10/04/2023 14:24:00 [facility] Diastolic Blood Pressure 77 mm[Hg] 10/04/2023 14:24:00 [facility] BP Site Left arm 10/04/2023 14:24:00 [facility] Mean Arterial Pressure, Calc 90 mm[Hg] 10/04/2023 14:24:00 [facility] Blood Pressure Manual Automatic 10/04/2023 14:24:00 [facility] Peripheral Pulse Rate 80 bpm 10/04/2023 14:24:00 [facility] Respiratory Rate 14 br/min 10/04/2023 14:24:00 [facility] Temperature Oral 37.0 Marquita 04/04/2023 15:18:00 [facility] Blood Pressure Manual Automatic 04/04/2023 15:18:00 [facility] BP Site Right arm 04/04/2023 15:18:00 [facility] Mean Arterial Pressure, Calc 82 mm[Hg] 04/04/2023 15:18:00 [facility] Respiratory Rate 20 br/min 04/04/2023 15:18:00 [facility] Peripheral Pulse Rate 76 bpm 04/04/2023 15:18:00 [facility] Systolic Blood Pressure 105 mm[Hg] 04/04/2023 15:18:00 [facility] Diastolic Blood Pressure 71 mm[Hg] 04/04/2023 15:18:00 [facility] Respiratory Rate 16 br/min 08/01/2023 17:18:00 [facility] Blood Pressure Manual Automatic 08/01/2023 17:18:00 [facility] Systolic Blood Pressure 125 mm[Hg] 08/01/2023 17:18:00 [facility] Diastolic Blood Pressure 76 mm[Hg] 08/01/2023 17:18:00 [facility] Temperature Oral 37.5 Marquita 08/01/2023 17:18:00 [facility] Mean Arterial Pressure, Calc 92 mm[Hg] 08/01/2023 17:18:00 [facility] Peripheral Pulse Rate 92 bpm 08/01/2023 17:18:00 [facility] BP Site Right arm 08/01/2023 17:18:00 [facility] Encounters Combined list of: 1) Encounters from Department of Veterans Affairs facilities going backup to the last 18 months, not all VA inpatient encounters are included; 2) Encounters from the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 area of concern which is around her umbilical area . -she would like to evaluated today in regard to this concern. she says that she has done physical therapy in the past for this with limited relief. - Patient was chaperoned by Mrs. Cherelle Alcaraz BSN - . She has some tenderness and divot palpated around umbilical area . - BS are normal . - No visible masses , or distension seen upon exam - -My recommendation today is for her to have a follow up evaluation with general surgeon to discuss further treatment options. -She says she has regular BM's , no dark stools, no gas or distension on a regular basis. - I will place a general surgical consultation for her at this time. -For any reoccurring prolonged abdominal discomfort or change in bowel movements ( dark , or red) ?patient is encouraged to have her escort her to a local ER . -If the general surgeon requires additional imaging ( US / MRI) prior to their consult we will order necessary imaging prior to that appointment if need be. 5. D ermatitis of eyelid - recommend to avoid using any kind of steroid cream close to eye until further evaluated by dermatology and optometry . -recommend to avoid make up . -patient may use tearless baby shampoo when washing close to eye . - recommend a mild non fragrance - hypo allergenic daily facial moisturizer. -for worsening rash that exceeds into eye or eyelid area - patient should seek immediate attention to local ER . Future Appointments Appointment Date: 09/27/2024 10:50:00 AM Scheduled Provider: CARMELITA MERCADO NP, Family Medicine Location: [address] [place] [address] Appointment Type: PC FTR Future Scheduled TestsLaboratoryVitamin D 25-Hydroxy [id number] 10/04/23 09/17/2024 Unknown Organization Functional Status Combined list of recent functional and cognitive assessments recorded at [facility] Functional [place] Measurement (FIM) Scale: 1 = Total Assistance (Subject = 0% +), 2 = Maximal Assistance (Subject = 25% +), 3 = Moderate Assistance (Subject = 50% +), 4 = Minimal Assistance (Subject = 75% +), 5 = Supervision, 6 = Modified [place] (Device), 7 = Complete [place] (Timely, Safely). Assessment Date/Time Source Assessment Type Assessment Skill Assessment Score Assessment Details No data available for this section
== END 2024-09-17 13:37 | disposition home or self-care (01) ==
PROVIDERS: Emergency Provider Nurse Practitioner Family
DX: H65.03 Acute serous otitis media, bilateral (principal); E03.9 Hypothyroidism, unspecified
CPT/HCPCS: 99203; G0463